=== PATIENT | female | born 1950 | race Caucasian/White ===

== ENCOUNTER 2022-10-11 12:05 | Outpatient (CLI) | payer MEDICARE, OTHER ==
--- NOTE | 2022-10-11 12:53 | XRAY Report ---
PROCEDURE: Chest 2 View X-Ray INDICATIONS: PRODUCTIVE COUGH TECHNIQUE: 2 views of the chest were acquired. COMPARISON: None. FINDINGS: Surgical changes and devices: None. Lungs and pleura: No pleural effusions or pneumothorax. Lungs are clear. Mediastinum: Mediastinal contours appear normal. Heart size is normal. Bones and chest wall: No suspicious bony lesions. Overlying soft tissues appear unremarkable. IMPRESSION: No acute cardiopulmonary process. Reviewed by: Jefrfey Lepe MD on 10/11/2022 12:51 PM PDT Approved by: Jeffrey Lepe MD on 10/11/2022 12:51 PM PDT Station ID: [id number]
== END 2022-10-11 23:59 | disposition home or self-care (01) ==
LOC: DI.S 12:05
PROVIDERS: ATTEND Physician Assistant Medical
DX: R05.8 Other specified cough (principal)